=== PATIENT | male | born 1970 | race Caucasian/White ===

== ENCOUNTER 2021-08-10 21:17 | Emergency (ER) | payer OTHER ==
[2021-08-10 21:57] LABS: BASOPHIL 0.7 % (0-2); EOSINOPHIL 2.3 % (0-5); HCT 43.2 % (42.0-52.0); HGB 14.6 g/dl (13.2-18.0); LYMPHOCYTE 23.1 % (15-48); MCH 30.7 pg (25.0-31.0); MCHC 33.8 g/dL (32.0-36.0); MCV 90.8 fL (78.0-100.0); MONOCYTE 7.6 % (0-12); MPV 9.4 fL (6.0-9.5); NEUTROPHIL 65.8 % (41-80); NRBC 0; PLT 264 K/uL (150-400); RBC 4.76 M/uL (4.70-6.00); RDW 13.6 % (11.5-14.0); WBC 14.8 K/uL (4.0-10.5)
[2021-08-10 22:01] LABS: PROTHROMBIN TIME 12.6 SECONDS (11.8-13.4); PTT 25.8 SECONDS (24.4-34.7)
[2021-08-10 22:09] LABS: ALBUMIN 3.5 g/dL (3.4-5.0); BILIRUBIN - TOTAL 0.4 mg/dL (0.2-1.0); BUN/CREAT RATIO (CALC) 17.5 RATIO; CREATININE 1.03 mg/dL (0.67-1.17); GLOBULIN (CALCULATION) 3.3 g/dL; POTASSIUM 3.6 mmol/L (3.5-5.1); TOTAL PROTEIN 6.8 g/dL (6.4-8.2)
[2021-08-10 22:16] LABS: PRO-BNP 101 pg/mL (<125)
== END 2021-08-10 22:42 | disposition other institution (70) ==
LOC: FER 21:17
PROVIDERS: Emergency Medicine
DX: I21.19 ST elevation (STEMI) myocardial infarction involving other coronary artery of inferior wall (principal); Z87.891 Personal history of nicotine dependence; Z20.822 Contact with and (suspected) exposure to COVID-19
CPT/HCPCS: 36415; 80053; 83735; 83880; 84484; 85025; 85610; 85730; 93005; J1644; U0002

== ENCOUNTER 2021-12-17 22:06 | Emergency (ER) | payer OTHER ==
[2021-12-17 22:25] LABS: BASOPHIL 0.9 % (0-2); EOSINOPHIL 4.7 % (0-5); HCT 43.9 % (42.0-52.0); HGB 15.5 g/dl (13.2-18.0); LYMPHOCYTE 30.8 % (15-48); MCH 32.2 pg (25.0-31.0); MCHC 35.3 g/dL (32.0-36.0); MCV 91.1 fL (78.0-100.0); MONOCYTE 8.6 % (0-12); MPV 9.5 fL (6.0-9.5); NEUTROPHIL 54.7 % (41-80); NRBC 0; PLT 257 K/uL (150-400); RBC 4.82 M/uL (4.70-6.00); RDW 12.2 % (11.5-14.0); WBC 12.2 K/uL (4.0-10.5)
[2021-12-17 22:36] LABS: INR 1.06 (0.9-1.2); PROTHROMBIN TIME 13.2 SECONDS (11.8-13.4)
[2021-12-17 22:38] LABS: D-DIMER < 0.27 ug/mLFEU (0.00-0.41)
[2021-12-17 22:49] LABS: PHOSPHORUS 2.3 mg/dL (2.6-4.7)
[2021-12-17 22:53] LABS: BILIRUBIN - TOTAL 0.5 mg/dL (0.2-1.0); BUN/CREAT RATIO (CALC) 19.8 RATIO; CREATININE 1.21 mg/dL (0.67-1.17); GLOBULIN (CALCULATION) 3.4 g/dL; POTASSIUM 3.3 mmol/L (3.5-5.1); TOTAL PROTEIN 7.4 g/dL (6.4-8.2)
== END 2021-12-18 01:35 | disposition home or self-care (01) ==
LOC: FER 22:06
PROVIDERS: Emergency Medicine
DX: I10 Essential (primary) hypertension (principal); R00.2 Palpitations; I25.10 Atherosclerotic heart disease of native coronary artery without angina pectoris; I25.2 Old myocardial infarction; Z20.822 Contact with and (suspected) exposure to COVID-19; Z79.899 Other long term (current) drug therapy
CPT/HCPCS: 36415; 71045; 80053; 83735; 83880; 84100; 84443; 84484; 85025; 85379; 85610; 93005; J7030; U0002

== ENCOUNTER 2022-03-20 04:25 | Emergency (ER) | payer OTHER ==
[2022-03-20 05:32] LABS: BASOPHIL 0.7 % (0-2); EOSINOPHIL 2.7 % (0-5); HCT 43.2 % (42.0-52.0); HGB 14.7 g/dl (13.2-18.0); LYMPHOCYTE 16.7 % (15-48); MCH 32.5 pg (25.0-31.0); MCV 95.4 fL (78.0-100.0); MONOCYTE 4.4 % (0-12); MPV 9.2 fL (6.0-9.5); NEUTROPHIL 75.1 % (41-80); NRBC 0; PLT 216 K/uL (150-400); RBC 4.53 M/uL (4.70-6.00); RDW 12.9 % (11.5-14.0); WBC 8.6 K/uL (4.0-10.5)
[2022-03-20 05:47] LABS: ALBUMIN 3.7 g/dL (3.4-5.0); BILIRUBIN - TOTAL 0.9 mg/dL (0.2-1.0); BUN/CREAT RATIO (CALC) 19.3 RATIO; CREATININE 0.88 mg/dL (0.67-1.17); POTASSIUM 3.7 mmol/L (3.5-5.1); TOTAL PROTEIN 6.7 g/dL (6.4-8.2)
[2022-03-20] MEDS ORDERED: HYDRALAZINE25 MG PO ×2 (06:41→06:42)
== END 2022-03-20 07:08 | disposition home or self-care (01) ==
LOC: FER 04:25
PROVIDERS: Emergency Medicine
DX: I10 Essential (primary) hypertension (principal)
CPT/HCPCS: 36415; 80053; 84484; 85025; 93005